=== PATIENT | male | born 2000 | race Caucasian/White ===

== ENCOUNTER 2022-12-03 19:52 | Emergency (ER) | payer MEDICARE, OTHER, SELFPAY ==
[2022-12-03 20:05] VITALS: BP 145/84; PULSE 87; RESP 16; TEMP 37.1; O2SAT 97; BMI 35.6
--- NOTE | 2022-12-03 20:07 | ED.EXTPRO1 ---
Documented by User: LUIZ Sosa 12/03/22 21:39 HPI - Extremity Problem General Chief complaint: Extremity Injury, Lower Stated complaint: LEFT LOWER EXTREMITY PAIN Time Seen by Provider: 12/03/22 20:07 Source: patient and family Mode of arrival: walk-in Limitations: no limitations History of Present Illness HPI Narrative: 22-year-old male who is morbidly obese presents with left foot swelling for the past 4 days without injury. He does have redness right above his sock line. Denies calf pain. Denies temp or sensation changes Related Data Allergies Allergy/AdvReac Type Severity Reaction Status Date / Time No Known Drug Allergies Allergy Verified 12/03/22 20:05 Review of Systems ROS Status of ROS 10 or more systems reviewed and unremarkable except as noted in history and below PFSH [facility] Social History Smoking status: Never smoker Exam Narrative Exam Narrative: General: A&Ox3, no distress, talking in full an complete sentences skin: warm, dry, intact head: normocephalic, atraumatic eyes: EOMI nose: nares patent neck: supple, trachea midline respiratory: non-labored extremities: FROM x 4, strength +5/5, 1+ pitting edema BLE and worse on the left distal leg with blanching erythema in a circular fashion above the sock line and also on the right leg above the sock line neuro: A&Ox3 psych: appropriate mood and affect, cooperative Constitutional Vital Signs, click to edit/add: Last Vital Signs Temp 98.7 F 12/03/22 20:05 Pulse 67 12/03/22 20:32 Resp 16 12/03/22 20:05 BP 145/84 H 12/03/22 20:05 Pulse Ox 97 12/03/22 20:05 O2 Del Method Room Air 12/03/22 20:05 Course Vital Signs Vital signs: Vital Signs Temperature 98.7 F 12/03/22 20:05 Pulse Rate 87 12/03/22 20:05 Respiratory Rate 16 12/03/22 20:05 Blood Pressure 145/84 H 12/03/22 20:05 Pulse Oximetry 97 12/03/22 20:05 Oxygen Delivery Method Room Air 12/03/22 20:05 Temperature 98.7 F 12/03/22 20:05 Pulse Rate 67 12/03/22 20:32 Respiratory Rate 16 12/03/22 20:05 Blood Pressure 145/84 H 12/03/22 20:05 Pulse Oximetry 97 12/03/22 20:05 Oxygen Delivery Method Room Air 12/03/22 20:05 MDM - Extremity (Nontraumatic) MDM Narrative Medical decision making narrative: Per solar technician, negative for DVT. Skin changes likely from the swelling and the erythema is on both legs. Blood work is requested and ordered. Due to shift change, case discussed and transferred to Dr. Babb for treatment and disposition. Lab Data Labs: Lab Results 12/03/22 Range/Units 22:13 WBC 5.1 (4.0-11.0) 10^3/uL RBC 4.33 L (4.70-6.10) 10^6/uL Hgb 13.1 L (14.0-18.0) g/dL Hct 38.6 L (42.0-54.0) % MCV 89.1 (80.0-94.0) fL MCH 30.3 (25.9-34.0) pg MCHC 33.9 (29.9-35.2) g/dL RDW 12.1 (11.0-15.0) % Plt Count 252 (150-450) 10^3/uL MPV 9.2 L (9.5-13.5) fL Neut % (Auto) 61.3 (43.0-75.0) % Lymph % (Auto) 26.2 (20.5-60.0) % Frontier % (Auto) 9.3 (1.7-12.0) % Eos % (Auto) 2.6 (0.9-7.0) % Baso % (Auto) 0.4 (0.2-2.0) % Neut # (Auto) 3.1 (1.4-6.5) 10^3/uL Lymph # (Auto) 1.3 (1.2-3.8) 10^3/uL Frontier # (Auto) 0.5 (0.3-0.8) 10^3/uL Eos # (Auto) 0.1 (0.0-0.7) 10^3/uL Baso # (Auto) 0.0 (0.0-0.1) 10^3/uL Abs Immat Gran (auto) 0.01 (0.00-0.03) 10^3/uL Imm/Tot Granulo (auto) 0.2 (0.0-0.5) % Sodium 133 L (136-145) mmol/L Potassium 3.6 (3.5-5.1) mmol/L Chloride 100 (98-107) mmol/L Carbon Dioxide 27.2 (21.0-32.0) mmol/L Anion Gap 9.4 BUN 8.0 (7.0-18.0) mg/dL Creatinine 0.91 (0.70-1.30) mg/dL BUN/Creatinine Ratio 8.8 Glucose 92 (74-106) mg/dL Calcium 8.2 L (8.5-10.1) mg/dL Total Bilirubin 0.5 (0.2-1.0) mg/dL AST 15 (15-37) U/L ALT 20 (16-63) U/L Alkaline Phosphatase 101 (46-116) U/L NT-Pro-B Natriuret Pep 49.0 (<=450.0) pg/mL Total Protein 7.5 (6.4-8.2) g/dL Albumin 3.6 (3.4-5.0) g/dL Globulin 3.9 g/dL Albumin/Globulin Ratio 0.9 Discharge Plan Discharge Chief Complaint: Extremity Injury, Lower Clinical Impression: Edema of both lower legs, Acute stasis dermatitis Patient Disposition: Home, Self-Care Condition: Good Mode of Transportation: Private Vehicle Instructions: Leg Edema (ED) Additional Instructions: follow up with the family doctor this week. Elevate legs as much as possible Stand Alone Forms: Portal Instructions Referrals: Physician,Non-Staff, [Primary Care Provider] - 1 week Documented by User: Eloy Babb MD 12/03/22 23:05 HPI - Extremity Problem General Chief complaint: Extremity Injury, Lower Stated complaint: LEFT LOWER EXTREMITY PAIN Time Seen by Provider: 12/03/22 20:07 Related Data Allergies Allergy/AdvReac Type Severity Reaction Status Date / Time No Known Drug Allergies Allergy Verified 12/03/22 20:05 PFSH PFSH Social History Smoking status: Never smoker Exam Constitutional Vital Signs, click to edit/add: Last Vital Signs Temp 98.7 F 12/03/22 20:05 Pulse 67 12/03/22 20:32 Resp 16 12/03/22 20:05 BP 145/84 H 12/03/22 20:05 Pulse Ox 97 12/03/22 20:05 O2 Del Method Room Air 12/03/22 20:05 Course Vital Signs Vital signs: Vital Signs Temperature 98.7 F 12/03/22 20:05 Pulse Rate 87 12/03/22 20:05 Respiratory Rate 16 12/03/22 20:05 Blood Pressure 145/84 H 12/03/22 20:05 Pulse Oximetry 97 12/03/22 20:05 Oxygen Delivery Method Room Air 12/03/22 20:05 Temperature 98.7 F 12/03/22 20:05 Pulse Rate 67 12/03/22 20:32 Respiratory Rate 16 12/03/22 20:05 Blood Pressure 145/84 H 12/03/22 20:05 Pulse Oximetry 97 12/03/22 20:05 Oxygen Delivery Method Room Air 12/03/22 20:05 MDM - Extremity (Nontraumatic) MDM Narrative Medical decision making narrative: Per solar technician, negative for DVT. Skin changes likely from the swelling and the erythema is on both legs. Blood work is requested and ordered. Due to shift change, case discussed and transferred to Dr. Babb for treatment and disposition. care transferred at change of shift. Labs neg for any sign of infection. Patient examined and his legs are nontender. patient and his mother informed of the diagnosis of stasis dermatitis Lab Data Labs: Lab Results 12/03/22 Range/Units 22:13 WBC 5.1 (4.0-11.0) 10^3/uL RBC 4.33 L (4.70-6.10) 10^6/uL Hgb 13.1 L (14.0-18.0) g/dL Hct 38.6 L (42.0-54.0) % MCV 89.1 (80.0-94.0) fL MCH 30.3 (25.9-34.0) pg MCHC 33.9 (29.9-35.2) g/dL RDW 12.1 (11.0-15.0) % Plt Count 252 (150-450) 10^3/uL MPV 9.2 L (9.5-13.5) fL Neut % (Auto) 61.3 (43.0-75.0) % Lymph % (Auto) 26.2 (20.5-60.0) % Frontier % (Auto) 9.3 (1.7-12.0) % Eos % (Auto) 2.6 (0.9-7.0) % Baso % (Auto) 0.4 (0.2-2.0) % Neut # (Auto) 3.1 (1.4-6.5) 10^3/uL Lymph # (Auto) 1.3 (1.2-3.8) 10^3/uL Frontier # (Auto) 0.5 (0.3-0.8) 10^3/uL Eos # (Auto) 0.1 (0.0-0.7) 10^3/uL Baso # (Auto) 0.0 (0.0-0.1) 10^3/uL Abs Immat Gran (auto) 0.01 (0.00-0.03) 10^3/uL Imm/Tot Granulo (auto) 0.2 (0.0-0.5) % Sodium 133 L (136-145) mmol/L Potassium 3.6 (3.5-5.1) mmol/L Chloride 100 (98-107) mmol/L Carbon Dioxide 27.2 (21.0-32.0) mmol/L Anion Gap 9.4 BUN 8.0 (7.0-18.0) mg/dL Creatinine 0.91 (0.70-1.30) mg/dL BUN/Creatinine Ratio 8.8 Glucose 92 (74-106) mg/dL Calcium 8.2 L (8.5-10.1) mg/dL Total Bilirubin 0.5 (0.2-1.0) mg/dL AST 15 (15-37) U/L ALT 20 (16-63) U/L Alkaline Phosphatase 101 (46-116) U/L NT-Pro-B Natriuret Pep 49.0 (<=450.0) pg/mL Total Protein 7.5 (6.4-8.2) g/dL Albumin 3.6 (3.4-5.0) g/dL Globulin 3.9 g/dL Albumin/Globulin Ratio 0.9 Discharge Plan Discharge Chief Complaint: Extremity Injury, Lower Clinical Impression: Edema of both lower legs, Acute stasis dermatitis Patient Disposition: Home, Self-Care Condition: Good Mode of Transportation: Private Vehicle Instructions: Leg Edema (ED) Additional Instructions: follow up with the family doctor this week. Elevate legs as much as possible Stand Alone Forms: Portal Instructions Referrals: Physician,Non-Staff, MD [Primary Care Provider] - 1 week
--- NOTE | 2022-12-03 20:26 | US_ITS ---
The [address] [address] Patient Name: HOMAR MANCUSO MRN: [id number] date: 2000 Sex: M Assigned Patient Location: ER Current Patient Location: ER Accession/Order Number: [id number] Exam Date: 12/03/2022 20:45 Report Date: 12/03/2022 21:52 At the request of: CONNIE URIAS Procedure: US venous doppler LE LT ULTRASOUND OF THE LOWER EXTREMITY VENOUS LEFT HISTORY: Extremity edema and pain. COMPARISON: None. TECHNIQUE: Multiple sonographic images are performed of the extremity venous system with both color Doppler and grayscale Doppler. Doppler spectral analysis and color flow were performed of the extremity. FINDINGS: There is no evidence of thrombus within the visualized veins. There is adequate phasic and spontaneous flow. There is adequate compression. There is adequate augmentation. No evidence of DVT within the visualized veins of the visualized extremity. Subcutaneous edema.No popliteal fluid collection. US/US venous doppler LE LT IMPRESSION: No evidence of DVT within visualized veins. Electronically authenticated by: ELVI QIU Date: 12/03/2022 21:52
[2022-12-03 20:32] VITALS: PULSE 67
--- NOTE | 2022-12-03 21:36 | XR_ITS ---
[address] [address] Patient Name: HOMAR MANCUSO MRN: [id number] date: 2000 Sex: M Assigned Patient Location: ER Current Patient Location: ER Accession/Order Number: [id number] Exam Date: 12/03/2022 21:40 Report Date: 12/03/2022 22:05 At the request of: CONNIE URIAS Procedure: XR chest 1V EXAMINATION: XR chest 1V HISTORY: Cough COMPARISON: Chest x-rays 06/06/2028 TECHNIQUE: Portable chest FINDINGS: The lung parenchyma is free of consolidation or infiltrate. No pneumothorax or pleural effusion. The cardiac, mediastinal and hilar contours are normal. The visualized osseous structures exhibit no gross abnormality. XR/XR chest 1V IMPRESSION: No acute cardiopulmonary abnormality. Electronically authenticated by: DANIELE DAVIS Date: 12/03/2022 22:05
[2022-12-03 22:22] LABS: Basophils Percent Auto 0.4 % (0.2-2.0); Eosinophils Absolute Auto 0.1 10^3/uL (0.0-0.7); Eosinophils Percent Auto 2.6 % (0.9-7.0); Hematocrit 38.6 % (42.0-54.0); Hemoglobin 13.1 g/dL (14.0-18.0); Immature Granulocytes Abs Auto 0.01 10^3/uL (0.00-0.03); Immature Granulocytes Pct Auto 0.2 % (0.0-0.5); Lymphocytes Absolute Auto 1.3 10^3/uL (1.2-3.8); Lymphocytes Percent Auto 26.2 % (20.5-60.0); Mean Corpuscular HGB Conc 33.9 g/dL (29.9-35.2); Mean Corpuscular Hemoglobin 30.3 pg (25.9-34.0); Mean Corpuscular Volume 89.1 fL (80.0-94.0); Mean Platelet Volume 9.2 fL (9.5-13.5); Monocytes Absolute Auto 0.5 10^3/uL (0.3-0.8); Monocytes Percent Auto 9.3 % (1.7-12.0); Neutrophils Absolute Auto 3.1 10^3/uL (1.4-6.5); Neutrophils Percent Auto 61.3 % (43.0-75.0); Platelet Count 252 10^3/uL (150-450); Red Blood Count 4.33 10^6/uL (4.70-6.10); Red Cell Distribution Width 12.1 % (11.0-15.0); White Blood Count 5.1 10^3/uL (4.0-11.0)
[2022-12-03 22:36] LABS: Alanine Aminotransferase 20 U/L (16-63); Albumin Globulin Ratio 0.9; Albumin Level 3.6 g/dL (3.4-5.0); Alkaline Phosphatase 101 U/L (46-116); Anion Gap 9.4; Aspartate Amino Transferase 15 U/L (15-37); BUN Creatinine Ratio 8.8; Bilirubin Total 0.5 mg/dL (0.2-1.0); Calcium 8.2 mg/dL (8.5-10.1); Carbon Dioxide 27.2 mmol/L (21.0-32.0); Chloride 100 mmol/L (98-107); Estimated GFR (African America >60 (>=60); Estimated GFR (Non-African Ame >60 (>=60); Globulin 3.9 g/dL; Glucose 92 mg/dL (74-106); Potassium 3.6 mmol/L (3.5-5.1); Sodium 133 mmol/L (136-145); Total Protein 7.5 g/dL (6.4-8.2)
[2022-12-03 23:19] VITALS: BP 133/78; PULSE 88; RESP 18; O2SAT 96
== END 2022-12-03 23:20 | disposition home or self-care (01) ==
PROVIDERS: Physician Assistant; Emergency Provider Internal Medicine
DX: R60.0 Localized edema (principal); I87.2 Venous insufficiency (chronic) (peripheral); Z68.35 Body mass index [BMI] 35.0-35.9, adult; E66.01 Morbid (severe) obesity due to excess calories
CPT/HCPCS: 36415; 71045; 80053; 83880; 85025; 93971; 99285